=== PATIENT | male | born 1945 | race Caucasian/White ===

== ENCOUNTER 2018-05-11 16:57 | Outpatient (RCR) | payer MEDICARE, OTHER | END 2018-05-17 | disposition home or self-care (01) | LOC: CR 16:57 | PROVIDERS: ATTEND Internal Medicine Clinical Cardiac Electrophysiology | DX: Z48.812 Encounter for surgical aftercare following surgery on the circulatory system (principal); Z95.5 Presence of coronary angioplasty implant and graft | CPT/HCPCS: 93798 ==

== ENCOUNTER 2018-11-03 19:27 | Emergency (ER) | payer MEDICARE, OTHER ==
[~2018-11-03] VITALS: Ht 188 cm; Wt 117.9 kg
--- OUTSIDE RECORDS SUMMARY | 2018-11-03 19:45 | XMS REPORT | Continuity of Care Document ---
Author Organization Unknown Address Unknown Allergies Active Description Code Type Severity Reaction Onset Reported/Identified Relationship to Patient Clinical Status Yes No Known Drug Allergies [id number] Drug Allergy Unknown N/A 09/23/2015 Medications There is no data. Problems Date Dx Coded Attending Type Code Diagnosis Diagnosed By 09/23/2015 JOSÉ HSIEH F17.220 NICOTINE DEPENDENCE, CHEWING TOBACCO, UN 09/23/2015 JOSÉ HSIEH I44.0 ATRIOVENTRICULAR BLOCK, FIRST DEGREE 09/23/2015 JOSÉ HSIEH I48.91 UNSPECIFIED ATRIAL FIBRILLATION 09/23/2015 JOSÉ HSIEH R00.1 BRADYCARDIA, UNSPECIFIED 09/23/2015 JOSÉ HSIEH R00.2 PALPITATIONS 09/23/2015 JOSÉ HSIEH Z79.82 PRISON (CURRENT) USE OF ASPIRIN Procedures There is no data. Results Test Result Range CBC - 10/21/18 08:56 WHITE BLOOD CELL COUNT 5.6 Thousand/uL 3.8-10.8 RED BLOOD CELL COUNT 4.76 Million/uL 4.20-5.80 HEMOGLOBIN 14.2 g/dL 13.2-17.1 HEMATOCRIT 43.3 % 38.5-50.0 MCV 91.0 fL 80.0-100.0 MCH 29.8 pg 27.0-33.0 MCHC 32.8 g/dL 32.0-36.0 RDW 13.6 % 11.0-15.0 PLATELET COUNT 179 Thousand/uL 140-400 MPV 10.2 fL 7.5-12.5 ABSOLUTE NEUTROPHILS 3562 cells/uL 6485-3610 ABSOLUTE LYMPHOCYTES 1288 cells/uL 850-3900 ABSOLUTE MONOCYTES 521 cells/uL 200-950 ABSOLUTE EOSINOPHILS 168 cells/uL 15-500 ABSOLUTE BASOPHILS 62 cells/uL 0-200 NEUTROPHILS 63.6 % NRG LYMPHOCYTES 23.0 % NRG MONOCYTES 9.3 % NRG EOSINOPHILS 3.0 % NRG BASOPHILS 1.1 % NRG Encounters ACCT No. Visit Date/Time Discharge Status Pt. Type Provider Facility Loc./Unit Complaint [id number] 10/21/2018 08:30:00 10/21/2018 23:59:59 CLS Outpatient SUNNY HOYT [facility] [id number] 10/21/2018 08:30:00 Document Registration [id number] 09/23/2015 08:10:00 09/23/2015 09:45:00 DIS Emergency JOSÉ HSIEH [facility]. [facility]ER
[2018-11-03] MEDS ORDERED: LACTATED RINGERS 1,000 ML IV ONE (19:52)
--- NOTE | 2018-11-03 19:52 | ED Abdominal Pain ---
General Stated Complaint: DIARRHEA,VOMITING, DIZZY, ABD PAIN Source of Information: Patient, Spouse Exam Limitations: No Limitations History of Present Illness Date Seen by Provider: Nov 03, 2018 Time Seen by Provider: 19:42 Initial Comments Patient presents to ER by private conveyance with his and chief complaint of the third day now of epigastric and left upper quadrant abdominal pain, watery diarrhea without blood or black tarry appearance, nausea vomiting. He thought it was just a food poisoning or a bug and would go away but it has persisted. He says the pain is intermittent and not bad right now. He has not taken anything for the diarrhea or nausea nor seen anybody yet. He does of a history of diverticulitis in the past. He's had a cholecystectomy. He does usually use Xarelto for history of atrial fibrillation and aspirin for his history of stents however he's holding the Xarelto because he has a injection in his back in the next couple days. He's had no fevers chills history of irritable bowel or inflammatory bowel disease. He has had colonoscopy before. Allergies and Home Medications Allergies Coded Allergies: No Known Drug Allergies (Unverified , 11/03/18) Patient Home Medication List Home Medication List Reviewed: Yes Review of Systems Review of Systems Constitutional: No chills, No diaphoresis EENTM: No Blurred Vision, No Double Vision Respiratory: Denies Cough, Denies Shortness of Air Cardiovascular: Denies Chest Pain, Denies Edema Gastrointestinal: Abdominal Pain; Denies Constipated; Diarrhea, Nausea, Poor Fluid Intake, Vomiting Genitourinary: Denies Burning, Denies Discharge Musculoskeletal: No back pain, No joint pain Skin: No pruritus, No rash Psychiatric/Neurological: Denies Headache, Denies Numbness, Denies Paresthesia Past Ghrxrpy-Mvvkfe-Rsivhr Hx Patient Social History Alcohol Use: Denies Use Recreational Drug Use: No Smoking Status: Never a Smoker Recent Foreign Travel: No Contact w/Someone Who Travel: No Physical Exam Vital Signs Vital Signs - First Documented 11/03/18 19:32 Temp 100.2 Pulse 87 Resp 17 B/P (MAP) 148/116 (127) Pulse Ox 97 O2 Delivery Room Air Capillary Refill : Height/Weight/BMI Height: '" Weight: lbs. oz. kg; BMI Method: General Appearance: WD/WN, mild distress HEENT: pharynx normal Neck: non-tender, full range of motion, normal inspection Respiratory: lungs clear, normal breath sounds, no respiratory distress, no accessory muscle use Cardiovascular: normal peripheral pulses, regular rate, rhythm, no edema Peripheral Pulses: 2+ Dorsalis Pedis (R), 2+ Left Dors-Pedis (L) Gastrointestinal: normal bowel sounds; No guarding, No rebound; tenderness (epigastric and left upper quadrant) Extremities: normal range of motion, normal capillary refill Neurologic/Psychiatric: alert, normal mood/affect, oriented x 3 Skin: normal color, warm/dry Progress/Results/Core Measures Results/Orders Lab Results Laboratory Tests Test 11/03/18 19:45 11/03/18 19:48 Range/Units Urine Color YELLOW Urine Clarity CLEAR Urine pH 5.0 5-9 Urine Specific [place] 1.025 H 1.016-1.022 Urine Protein NEGATIVE NEGATIVE Urine Glucose (UA) NEGATIVE NEGATIVE Urine Ketones NEGATIVE NEGATIVE Urine Nitrite NEGATIVE NEGATIVE Urine Bilirubin NEGATIVE NEGATIVE Urine Urobilinogen 0.2 NORMAL MG/DL Urine Leukocyte Esterase NEGATIVE NEGATIVE Urine RBC (Auto) TRACE H NEGATIVE Urine RBC 0-2 /HPF Urine WBC NONE /HPF Urine Squamous Epithelial Cells RARE /HPF Urine Crystals NONE /LPF Urine Bacteria NONE /HPF Urine Casts NONE /LPF Urine Mucus TRACE /LPF Urine Trichomonas /HPF Urine Culture Indicated NO White Blood Count 5.1 4.3-11.0 10^3/uL Red Blood Count 5.17 4.35-5.85 10^6/uL Hemoglobin 15.8 13.3-17.7 G/DL Hematocrit 47 40-54 % Mean Corpuscular Volume 91 80-99 FL Mean Corpuscular Hemoglobin 31 25-34 PG Mean Corpuscular Hemoglobin Concent 34 32-36 G/DL Red Cell Distribution Width 13.5 10.0-14.5 % Platelet Count 198 130-400 10^3/uL Mean Platelet Volume 9.2 7.4-10.4 FL Neutrophils (%) (Auto) 85 H 42-75 % Lymphocytes (%) (Auto) 7 L 12-44 % Monocytes (%) (Auto) 6 0-12 % Eosinophils (%) (Auto) 1 0-10 % Basophils (%) (Auto) 0 0-10 % Neutrophils # (Auto) 4.4 1.8-7.8 X 10^3 Lymphocytes # (Auto) 0.4 L 1.0-4.0 X 10^3 Monocytes # (Auto) 0.3 0.0-1.0 X 10^3 Eosinophils # (Auto) 0.1 0.0-0.3 10^3/uL Basophils # (Auto) 0.0 0.0-0.1 10^3/uL Neutrophils % (Manual) 64 % Lymphocytes % (Manual) 14 % Monocytes % (Manual) 3 % Eosinophils % (Manual) 2 % Basophils % (Manual) 0 % Band Neutrophils 17 % Blood Morphology Comment NORMAL Sodium Level 137 135-145 MMOL/L Potassium Level 4.4 3.6-5.0 MMOL/L Chloride Level 97 L 98-107 MMOL/L Carbon Dioxide Level 27 21-32 MMOL/L Anion Gap 13 5-14 MMOL/L Blood Urea Nitrogen 18 7-18 MG/DL Creatinine 1.22 0.60-1.30 MG/DL Estimat Glomerular Filtration Rate 58 BUN/Creatinine Ratio 15 Glucose Level 133 H 70-105 MG/DL Calcium Level 8.7 8.5-10.1 MG/DL Corrected Calcium 8.7 8.5-10.1 MG/DL Magnesium Level 1.7 L 1.8-2.4 MG/DL Total Bilirubin 0.9 0.1-1.0 MG/DL Aspartate Amino Transf (AST/SGOT) 19 5-34 U/L Alanine Aminotransferase (ALT/SGPT) 15 0-55 U/L Alkaline Phosphatase 52 40-136 U/L Total Protein 7.4 6.4-8.2 GM/DL Albumin 4.0 3.2-4.5 GM/DL Lipase 32 8-78 U/L My Orders Orders - VETO DEL CASTILLO Ua Culture If Indicated (11/03/18 19:31) Cbc With Automated Diff (11/03/18 19:42) Comprehensive Metabolic Panel (11/03/18 19:42) Magnesium (11/03/18 19:42) Iv Heplock-Insert (Order) (11/03/18 19:42) Lipase (11/03/18 19:42) Ondansetron Injection (Zofran Injectio (11/03/18 20:00) Ct Abdomen/Pelvis W (11/03/18 19:52) Ed Iv/Invasive Line Start (11/03/18 19:52) Lactated Ringers (Lr 1000 Ml Iv Solution (11/03/18 19:52) Manual Differential (11/03/18 19:48) Iohexol Injection (Omnipaque 350 Mg/Ml 1 (11/03/18 20:15) Ns (Ivpb) (Sodium Chloride 0.9% Ivpb Bag (11/03/18 20:15) Received Contrast (Hold Metformin- Contr (11/03/18 20:15) Magnesium 1 Gm/100 Ml Ivpb (Magnesium Martinez (11/03/18 20:30) Medications Given in ED Current Medications Medications Dose Ordered Sig/Brian Route Start Time Stop Time Status Last Admin Dose Admin Iohexol 100 ml ONCE ONCE IV 11/03/18 20:15 11/03/18 20:16 DC 11/03/18 20:41 100 ML Lactated Ringer's 1,000 ml @ 0 mls/hr Q0M ONCE IV 11/03/18 19:52 11/03/18 19:54 DC 11/03/18 20:05 999 MLS/HR Magnesium Sulfate/ Dextrose 100 ml @ 100 mls/hr ONCE ONCE IV 11/03/18 20:30 11/03/18 21:29 DC 11/03/18 20:58 100 MLS/HR Ondansetron HCl 8 mg ONCE ONCE IVP 11/03/18 20:00 11/03/18 20:01 DC 11/03/18 20:05 8 MG Sodium Chloride 100 ml ONCE ONCE IV 11/03/18 20:15 11/03/18 20:16 DC 11/03/18 20:42 40 ML Vital Signs/I&O 11/03/18 19:32 Temp 100.2 Pulse 87 Resp 17 B/P (MAP) 148/116 (127) Pulse Ox 97 O2 Delivery Room Air Progress Progress Note #1: Time: 20:18 Progress Note While patient does not have diabetes his reports he does have high triglycerides. We'll check a lipase and basic labs thinking about pancreatitis, colitis, diverticulitis, gastritis, gastroenteritis and significantly less likely since he just stopped his Xarelto would be a mesenteric infarct. We would expect mesenteric infarct not to be intermittent pain. At this time is comfortab le and does not want anything for pain as well as give him some IV Zofran for his nausea. Urinalysis. CT of the abdomen pelvis with contrast IV. Progress Note #2: Time: 22:04 Progress Note The patient is currently nausea and pain free even passing copious stool so a bowel obstruction is less likely. We will elect outpatient treatment. Diagnostic Imaging Diagonstic Imaging: CT (with IV contrast only) Plain Films/CT/US/NM/MRI: abdomen, pelvis Comments NAME: [facility]NELL [facility] REC#: [id number] PT STATUS: REG ER : 02/01/1946 PHYSICIAN: VETO DEL CASTILLO MD ADMIT DATE: 11/03/18/ER FS Signed Date of Exam:11/03/18 CT ABDOMEN/PELVIS W PROCEDURE: CT abdomen and pelvis with contrast. TECHNIQUE: Multiple contiguous axial images were obtained through the abdomen and pelvis after administration of intravenous contrast. Auto Exposure Controls were utilized during the CT exam to meet ALARA standards for radiation dose reduction. INDICATION: Upper abdominal pain. Nausea and diarrhea. COMPARISON STUDIES: None. FINDINGS: Coronary artery calcifications are present. The heart size is normal. COPD changes are present in the lung bases. The gallbladder is absent. The liver, spleen, pancreas and adrenal glands are normal. Simple cysts are present in the kidneys. The kidneys are otherwise normal. Urinary bladder appears normal. The prostate gland is enlarged. No nodules are present. This measures up to 6.8 cm. Diverticula are present in the colon. These are mostly within the sigmoid colon. There are some dilated loops of small bowel with mild wall thickening. There are some areas where the bowel gets smaller in caliber but then becomes more normal in size. Findings are probably due to fairly severe enteritis. Early bowel obstruction cannot be excluded. There is some haziness in the central mesentery. No ascites, free air or loculated fluid collections are present. IMPRESSION: 1. Probable enteritis. Early small bowel obstruction is also a possibility. The bowel perez are thickened with some dilatation of the small bowel. There is haziness in the adjacent mesentery. 2. Prostatic enlargement. 3. Coronary artery calcifications. Dictated by: Dictated on workstation # [id number] Dict: 11/03/182101 Trans: 11/03/182117 [facility] [id number] Interpreted by: GALE ALAS MD Electronically signed by: GALE ALAS MD 11/03/182117 Reviewed: Reviewed by Me Departure Impression Primary Impression: Gastroenteritis and colitis, viral Disposition: 01 HOME, SELF-CARE Condition: Improved Departure-Patient Inst. Decision time for Depature: 22:05 Referrals: SUNNY HOYT MD (PCP/Family) Primary Care Physician Patient Instructions: Viral Gastroenteritis, Adult (DC) Add. Discharge Instructions: Drink plenty of fluids. Sports drinks are encouraged. Avoid caffeine and alcohol. For diarrhea you may use 2 tablets of loperamide 4 mg followed by one tablet every 4 hours as needed to get your loose stools solidified. If you have nausea use one tablet of Zofran every 6 hours as needed under the tongue. If you have pain you may use Tylenol 1000 g every 8 hours as well as heating pads. If you have intractable pain or nausea vomiting then you should return to the ER for further evaluation. Expect this to pass usually in 3-5 days. Follow-up with primary care as necessary. Scripts Ondansetron (Ondansetron Odt) 4 Mg Tab.rapdis 4 MG PO Q6H PRN for NAUSEA/VOMITING, #8 TAB 0 Refills Prov: VETO DEL CASTILLO 11/03/18 VETO DEL CASTILLO Nov 03, 2018 19:52
[2018-11-03 19:58] LABS: BILIRUBIN,URINE NEGATIVE (NEGATIVE); CLARITY,URINE CLEAR; COLOR,URINE YELLOW; GLUCOSE, URINE (UA) NEGATIVE (NEGATIVE); KETONES,URINE NEGATIVE (NEGATIVE); LEUKOCYTE ESTERASE ,URINE NEGATIVE (NEGATIVE); NITRITE,URINE NEGATIVE (NEGATIVE); PROTEIN,URINE NEGATIVE (NEGATIVE); RBC,URINE 0-2 /HPF; SQUAMOUS EPITHELIAL CELL,UR RARE /HPF; UROBILINOGEN,URINE 0.2 MG/DL (NORMAL)
[2018-11-03 19:59] LABS: WHITE BLOOD COUNT 5.1 10^3/uL (4.3-11.0)
[2018-11-03 20:00] LABS: BASOPHILS % (AUTO) 0 % (0-10); EOSINOPHILS # (AUTO) 0.1 10^3/uL (0.0-0.3); EOSINOPHILS % (AUTO) 1 % (0-10); HEMATOCRIT 47 % (40-54); HEMOGLOBIN 15.8 G/DL (13.3-17.7); LYMPHOCYTES # (AUTO) 0.4 X 10^3 (1.0-4.0); LYMPHOCYTES % (AUTO) 7 % (12-44); MEAN CORPUSCULAR HEMOGLOBIN 31 PG (25-34); MEAN CORPUSCULAR HGB CONC 34 G/DL (32-36); MEAN CORPUSCULAR VOLUME 91 FL (80-99); MEAN PLATELET VOLUME 9.2 FL (7.4-10.4); MONOCYTES # (AUTO) 0.3 X 10^3 (0.0-1.0); MONOCYTES % (AUTO) 6 % (0-12); NEUTROPHILS # (AUTO) 4.4 X 10^3 (1.8-7.8); NEUTROPHILS % (AUTO) 85 % (42-75); PLATELET COUNT 198 10^3/uL (130-400); RED CELL DISTRIBUTION WIDTH 13.5 % (10.0-14.5)
[2018-11-03] MEDS ORDERED: ONDANSETRON 4 MG/2 ML (SDV) Z0FRAN IVP ONE (20:00)
[2018-11-03] MEDS ORDERED: IOHEXOL 350 MG/ML 100 ML (OMNIPAQUE 350) VIAL IV ONE (20:15)
[2018-11-03] MEDS ORDERED: NS 100 ML (IVPB) BAG IV ONE (20:15)
[2018-11-03] MEDS ORDERED: HOLD METFORMIN - RECEIVED CONTRAST 20 ML VIAL IV SCH (20:15)
[2018-11-03 20:22] LABS: BAND NEUTROPHILS 17 %; BASOPHILS % (MANUAL) 0 %; EOSINOPHILS % (MANUAL) 2 %; LYMPHOCYTES % (MANUAL) 14 %; MONOCYTES % (MANUAL) 3 %; NEUTROPHILS % (MANUAL) 64 %; RBC MORPH NORMAL
[2018-11-03 20:23] LABS: BILIRUBIN,TOTAL 0.9 MG/DL (0.1-1.0); CALCIUM 8.7 MG/DL (8.5-10.1); CREATININE SERUM 1.22 MG/DL (0.60-1.30); MAGNESIUM 1.7 MG/DL (1.8-2.4); POTASSIUM 4.4 MMOL/L (3.6-5.0); TOTAL PROTEIN 7.4 GM/DL (6.4-8.2)
[2018-11-03] MEDS ORDERED: MAGNESIUM 1 GM/100 ML IVPB 100 ML IV ONE (20:30)
--- NOTE | 2018-11-03 21:14 | Diagnostic Imaging Report ---
PROCEDURE: CT abdomen and pelvis with contrast. TECHNIQUE: Multiple contiguous axial images were obtained through the abdomen and pelvis after administration of intravenous contrast. Auto Exposure Controls were utilized during the CT exam to meet ALARA standards for radiation dose reduction. INDICATION: Upper abdominal pain. Nausea and diarrhea. COMPARISON STUDIES: None. FINDINGS: Coronary artery calcifications are present. The heart size is normal. COPD changes are present in the lung bases. The gallbladder is absent. The liver, spleen, pancreas and adrenal glands are normal. Simple cysts are present in the kidneys. The kidneys are otherwise normal. Urinary bladder appears normal. The prostate gland is enlarged. No nodules are present. This measures up to 6.8 cm. Diverticula are present in the colon. These are mostly within the sigmoid colon. There are some dilated loops of small bowel with mild wall thickening. There are some areas where the bowel gets smaller in caliber but then becomes more normal in size. Findings are probably due to fairly severe enteritis. Early bowel obstruction cannot be excluded. There is some haziness in the central mesentery. No ascites, free air or loculated fluid collections are present. IMPRESSION: 1. Probable enteritis. Early small bowel obstruction is also a possibility. The bowel perez are thickened with some dilatation of the small bowel. There is haziness in the adjacent mesentery. 2. Prostatic enlargement. 3. Coronary artery calcifications. Dictated by: Dictated on workstation # [id number]
[2018-11-03] MEDS ORDERED: ONDA4TAB11 PO (22:06)
[2018-11-03] MEDS ORDERED: RX-ONDANSETRON 4 MG ODT (ZOFRAN) PPK #4 PO STA (22:07)
[2018-11-03 22:30] VITALS: BP 101/58
== END 2018-11-03 22:30 | disposition home or self-care (01) ==
LOC: EDUNIT# 19:27 → ER FS 19:29
DX: A08.4 Viral intestinal infection, unspecified (principal); I48.91 Unspecified atrial fibrillation; K58.9 Irritable bowel syndrome, unspecified; Z79.01 Long term (current) use of anticoagulants; Z87.19 Personal history of other diseases of the digestive system; Z90.49 Acquired absence of other specified parts of digestive tract
CPT/HCPCS: 36415; 74177; 80053; 81000; 83690; 83735; 85007; 85027; 96361; 96365; 96375

== ENCOUNTER → 2019-11-08 | Outpatient (CLI) | payer MEDICARE, OTHER ==
[~2019-11-08] MED LIST: ONDA4TAB11 PO
--- NOTE | 2019-11-08 12:55 | Diagnostic Imaging Report ---
INDICATION: Left-sided rib pain. COMPARISON: None FINDINGS: Frontal radiograph view of the chest shows normal cardiac silhouette and pulmonary vasculature. Lungs are clear. There is no focal consolidation, large effusion, nor pneumothorax. Multiple dedicated radiographic views of the left ribs were also obtained. No healing or displaced left-sided rib fractures are identified. No other gross acute osseous abnormalities are seen. IMPRESSION: 1. No acute cardiopulmonary process. 2. No healing or displaced left-sided rib fractures. Dictated by: Dictated on workstation # [id number]
== END ==
LOC: RAD FS 11:13
PROVIDERS: ATTEND Family Medicine
DX: R07.81 Pleurodynia (principal)
CPT/HCPCS: 71101